=== PATIENT | male | born 1935 | race Caucasian/White ===

== ENCOUNTER 2020-07-12 14:47 | Outpatient (CLI) | payer OTHER | END 2020-07-12 14:48 | disposition home or self-care (01) | LOC: CSHMRI 14:47 | PROVIDERS: ATTEND Family Medicine | DX: S22.080A Wedge compression fracture of T11-T12 vertebra, initial encounter for closed fracture (principal) | CPT/HCPCS: 72146 ==

== ENCOUNTER 2024-02-04 09:31 | Outpatient (CLI) | payer MEDICARE | END 2024-02-04 09:32 | disposition home or self-care (01) | LOC: CSHSPEC 09:31 | PROVIDERS: ATTEND Orthopaedic Surgery | DX: M47.26 Other spondylosis with radiculopathy, lumbar region (principal) | CPT/HCPCS: 72148 ==